=== PATIENT | female | born 1970 | race Caucasian/White ===

== ENCOUNTER 2018-02-23 19:01 | Emergency (ER) | END 2018-02-23 21:05 | disposition home or self-care (01) ==

== ENCOUNTER 2018-06-15 16:15 | Emergency (ER) | END 2018-06-15 18:00 | disposition home or self-care (01) ==

== ENCOUNTER → 2018-09-25 | Outpatient (CLI) | payer BC ==
[~2018-09-25] MED LIST: HYDR-4011 PO; MTF1000T PO; PRED20TA PO
== END | disposition home or self-care (01) ==
LOC: LAB 10:00
PROVIDERS: ATTEND Nurse Practitioner Family
DX: E11.8 Type 2 diabetes mellitus with unspecified complications (principal)
CPT/HCPCS: 83036